=== PATIENT | female | born 1950 | race Caucasian/White ===

== ENCOUNTER 2019-10-30 08:33 | Emergency (ER) | payer MEDICARE, OTHER ==
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
[2019-10-30] MEDS ORDERED: LIDOCAINE 2% INJ (20 MG/ML) 20 ML MDV INJ ONE (12:19)
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
[2019-10-30] MEDS ORDERED: HYDROCODONE/ACETAMINOPHEN 5-325 MG TABLET PO ONE (13:40)
[2019-10-30] MEDS ORDERED: DIPH/PERTUSS(ACELL)/TETANUS VAC/PF 0.5 ML SYR (>=10YO) IM ONE (13:58)
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
[2019-10-30] MEDS ORDERED: HYDROCODONE/ACETAMINOPHEN 5-325 MG (6 TAB/ER DISP) PO PRN (14:23)
[2019-10-30] MEDS ORDERED: AZITHROMYCIN 250 MG TABLET PO ONE (14:23)
[2019-10-30 14:26] VITALS: BP 131/72
== END 2019-10-30 14:33 | disposition home or self-care (01) ==
LOC: ER 08:33
PROC: 0HQLXZZ Repair Left Lower Leg Skin, External Approach (ICD-10-PCS; principal; 2019-10-30)
DX: S81.812A Laceration without foreign body, left lower leg, initial encounter (principal); S40.012A Contusion of left shoulder, initial encounter; S00.93XA Contusion of unspecified part of head, initial encounter; R51 Headache; M54.2 Cervicalgia; M79.605 Pain in left leg; M25.512 Pain in left shoulder; M54.9 Dorsalgia, unspecified; Z87.891 Personal history of nicotine dependence
CPT/HCPCS: 99284; 90471; 73030; 73590; 70450; 72125; 90715; 12002; J3490; A9270 ×3